=== PATIENT | male | born 1970 | race Two or more races ===

== ENCOUNTER 2024-08-09 00:56 | Emergency (ER) | payer MEDICAID ==
[~2024-08-09] VITALS: Ht 172.7 cm; Wt 79.0 kg
[2024-08-09 01:04] VITALS: TEMP 98.1; O2SAT 98
[2024-08-09] MEDS ORDERED: IBUP-2029 MT (05:12)
[2024-08-09 05:33] VITALS: BP 118/85; PULSE 77; RESP 16; O2SAT 97
== END 2024-08-09 05:34 | disposition home or self-care (01) ==
LOC: ER 00:56
DX: S00.432A Contusion of left ear, initial encounter (principal); E03.9 Hypothyroidism, unspecified; E11.9 Type 2 diabetes mellitus without complications; F19.90 Other psychoactive substance use, unspecified, uncomplicated; Y08.89XA Assault by other specified means, initial encounter; Y93.89 Activity, other specified; Y92.89 Other specified places as the place of occurrence of the external cause; Y99.8 Other external cause status
CPT/HCPCS: 99284